=== PATIENT | male | born 1980 | race Caucasian/White ===

== ENCOUNTER 2017-10-11 20:44 | Emergency (ER) | payer OTHER, MEDICAID, SELFPAY ==
[2017-10-11 20:45] VITALS: BP 133/78; PULSE 82; RESP 14; TEMP 36.6; O2SAT 95; BMI 35.3
[2017-10-11] MEDS: Morphine 4 MG/ML Syringe IV (21:38)
[2017-10-11] MEDS: Ketorolac 30 MG/ML Syringe IV (21:38)
[2017-10-11] MEDS: Ondansetron 4 MG/2 ML Vial IV (21:39)
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
[2017-10-11 23:34] VITALS: RESP 18; O2SAT 99
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
[2017-10-11] MEDS: Cephalexin 500 MG Capsule PO (23:47)
[2017-10-11 23:49] VITALS: BP 127/86
== END 2017-10-11 23:50 | disposition home or self-care (01) ==
PROVIDERS: Emergency Provider Emergency Medicine; Family Provider Family Medicine; PCP Family Medicine
DX: S06.0X9A Concussion with loss of consciousness of unspecified duration, initial encounter (principal); S16.1XXA Strain of muscle, fascia and tendon at neck level, initial encounter; S00.431A Contusion of right ear, initial encounter; S20.211A Contusion of right front wall of thorax, initial encounter; V43.52XA Car driver injured in collision with other type car in traffic accident, initial encounter; Y93.89 Activity, other specified; Y92.410 Unspecified street and highway as the place of occurrence of the external cause
CPT/HCPCS: 70110; 96374; 96375; 99284; A4216; J2405

== ENCOUNTER 2017-10-17 08:03 | Emergency (ER) | payer OTHER, MEDICAID, SELFPAY ==
[2017-10-17 08:04] VITALS: BP 149/98; PULSE 75; RESP 18; TEMP 36.6; O2SAT 96; BMI 35.3
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
[2017-10-17] MEDS: diazePAM 5 MG Tablet PO (08:23)
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
[2017-10-17 09:45] VITALS: BP 138/74; PULSE 62; RESP 15; O2SAT 98
== END 2017-10-17 09:47 | disposition home or self-care (01) ==
PROVIDERS: Emergency Provider Emergency Medicine; Family Provider Family Medicine; PCP Family Medicine
DX: S16.1XXA Strain of muscle, fascia and tendon at neck level, initial encounter (principal); V89.2XXA Person injured in unspecified motor-vehicle accident, traffic, initial encounter; Y93.89 Activity, other specified
CPT/HCPCS: 72125; 99282